=== PATIENT | female | born 1955 | race Caucasian/White ===

== ENCOUNTER 2020-05-17 23:29 | Emergency (ER) | payer BC, OTHER, SELFPAY ==
[2020-05-18] MEDS ORDERED: Lorazepam 1 MG TAB ONE (00:41)
== END 2020-05-18 01:15 | disposition home or self-care (01) ==
LOC: CSHERS 23:29
DX: F41.9 Anxiety disorder, unspecified (principal); I10 Essential (primary) hypertension; Z79.899 Other long term (current) drug therapy
CPT/HCPCS: 99283